=== PATIENT | male | born 1970 | race Caucasian/White ===

== ENCOUNTER 2024-06-04 13:39 | Outpatient (CLI) | payer BC, SELFPAY ==
--- NOTE | ~2024-06-04 | XR_ITS ---
XR cervical spine 4-5V 06/04/2024 14:07 Indication: Neck pain Procedure: 5 views cervical spine Comparison: No prior studies for comparison. Findings: There is disc narrowing at C5-6 and C6-7. No prevertebral soft tissue swelling. There is le voscoliosis of the cervical spine. No acute fracture or traumatic malalignment. Odontoid process is n ormal. Lateral masses normally aligned. Impression: 1: Mild cervical spondylosis with levoscoliosis. Reviewed, dictated and finalized at location B. UCHING OPERATOR Impression: 1: Mild cervical spondylosis with levoscoliosis.
--- NOTE | ~2024-06-04 | XR_ITS ---
3 VIEWS THORACIC SPINE Ordering provider: Dandre Pedersen, DC CCST History: . MID BACK PAIN, NECK PAIN . Comparison: None. FINDINGS: VERTEBRAL BODIES: Normal height and alignment. No visible fracture or subluxation. DISK SPACES: Normal. SOFT TISSUES: Normal. IMPRESSION: No acute osseous abnormality of the thoracic spine. Reviewed, dictated and finalized at location A. STICK MAN
== END 2024-06-04 13:40 | disposition home or self-care (01) ==
LOC: MICIMG 13:46
PROVIDERS: PCP Chiropractor; Visit Provider Chiropractor
DX: M47.812 Spondylosis without myelopathy or radiculopathy, cervical region (principal); M41.82 Other forms of scoliosis, cervical region
CPT/HCPCS: 72050; 72070

== ENCOUNTER 2025-03-09 08:03 | Emergency (ER) | payer BC, SELFPAY ==
--- NOTE | ~2025-03-09 | XR_ITS ---
Examination: XR knee LT min 4V Clinical History: lateral pain x2 wks. No injury. Comparison: None Technique: 4 views left knee Findings/impression: 1. No fracture, dislocation, or effusion left knee. 2. No degenerative changes. Reviewed, dictated and finalized at location R.
--- OUTSIDE RECORDS SUMMARY | 2025-03-09 08:06 | XMS_ITS | Encounter Summary ---
Author Organization [facility] Address [facility] [place] [address] Care Team Providers Care Slag Worker Name Role Phone Zach Mills MD Primary Care Provider [phone]- [phone] None, Provider Primary Care Provider Unavaila ble Encounter Details Date Type Department Care Team (Late st Contact Info) Description 04/26/2024 [employer] Message Enc [facility] [id number] [place] [phone] [employer], [facility] Provider Need to reset appt Social History Tobacco Use Types Packs/Day Years Used Date Smoking Tobacco: Never Smokeless Tobacco: Current Alcohol Use Standard Drinks/Week Comments Yes 0 (1 standard drink = 0.6 oz pur e alcohol) couple beers daily PHQ-2 Answer Date Recorded Patient Health Questionnaire-2 Score 0 02/27/2023 Sex and Gender Information Value Date Recorded Sex Assigned at Not on file Legal Sex Male 1:43 AM CDT Gender Identity Not on file Sexual Orientation Not on file documented as of this encounter Plan of Treatment Not on file documented as of this encounter Visit Diagnoses Not on filedocumented in this encounter Care Teams Slag Worker Relationship Specialty [place] [address] [address] PCP - General INTERNAL MEDICINE 04/15/24 06/02/24 None, ProviderMD PCP - General UNKNOWN PHYSICIAN SPECIALTY 06/03/24 documented as of this encounter
--- OUTSIDE RECORDS SUMMARY | 2025-03-09 08:06 | XMS_ITS | Clinical Summary ---
Author Organization [facility] Administrative Offices Address [address] [place] [address] Care Team Providers Care Physics And Astronomy Professor Name Role Phone Marko Carmona MD Primary Care Provider [phone] Allergies No known active allergies Medications rosuvastatin (CRESTOR) 20 mg tablet Take 20 mg by mouth daily at bedtime. Active levothyroxine 100 mcg tablet Take 100 mcg by mouth daily manager gas. Active fenofibrate micronized (LOFIBRA) 134 mg Capsule Take 134 mg by mouth daily. Active cephALEXin (KEFLEX) 500 mg capsule Take 1 Capsule (500 mg) by mouth 3 times daily. 15 Capsule 8 Active Additional Information Patient not taking.Reported on 09/23/2024 lisinopril (PRINIVIL) 10 mg tablet Take 10 mg by mouth daily. Active Cetirizine (ZyrTEC) 10 mg Capsule Take 10 mg at night. 30 Capsule 2 9 Active Additional Information Patient not taking.Reported on 09/23/2024 predniSONE (DELTASONE) 10 mg tablet Take 4 tablets for 7 days, then 3 tablets for 14 days, then 2 tablets for 14 days, then one tablet for 7 days 105 Tablet 0 Active Additional Information Patient not taking.Reported on 09/23/2024 clobetasol (TEMOVATE) 0.05 % Ointment APPLY TO AFFECTED AREAS ON TRUNK AND EXTREMITIES 1-2 TIMES PER DAY, DECREASE TO DAILY OR EVERY OTHER DAY YOU IMPROVE 60 Gram 0 Active Additional Information Patient not taking.Reported on 09/23/2024 triamcinolone acetonide (KENALOG) 0.1 % Ointment Apply to affected area 2 times daily. 454 Gram 1 0 Active Additional Information Patient not taking.Reported on 09/23/2024 methotrexate (RHEUMATREX) 2.5 mg Tablet Take 6 Tablets (15 mg) by mouth every 7 days. 24 Tablet 0 Active Additional Information Patient not taking.Reported on 09/23/2024 Active Problems Problem Noted Date Diagnosed Date Vasectomy evaluation 06/20/2017 Family History Medical History Relation Name Comments Rashes/Skin Problems Neg Hx Skin Cancer Neg Hx Relation Name Status Comments Father Mother Alive Social History Tobacco Use Types Packs/Day Years Used Date Smoking Tobacco: Never Smokeless Tobacco: Current Chew Tobacco Cessation:Ready to Q uit: No; Counseling Given: Yes Alcohol Use Standard Drinks/Week Comments Yes 0 (1 standard drink = 0.6 oz pur e alcohol) Sex and Gender Information Value Date Recorded Sex Assigned at Not on file 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 Gender Identity Not on file Sexual Orientation Not on file Last Filed Vital Signs Vital Sign Reading Time Taken Comments Blood Pressure 128/90 09/23/2024 1:36 PM CDT Pulse 119 09/23/2024 1:36 PM CDT Temperature 36.7 C (98 F) 09/23/2024 1:36 PM CDT Respiratory Rate 16 09/23/2024 1:36 PM CDT Oxygen Saturation 98% 09/23/2024 1:36 PM CDT Inhaled Oxygen Concentration - - Weight 90.3 kg (199 lb) 09/23/2024 1:36 PM CDT Height 182.9 cm (6') 09/23/2024 1:36 PM CDT Body Mass Index 26.99 09/23/2024 1:36 PM CDT Plan of Treatment Health Maintenance Due Date Last Done Comments Pre-Diabetes and Diabetes Screening 1971 DTAP/TDAP/TD VACCINES (1 - Tdap) 1990 HEPATITIS B VACCINES (1 of 3 - 19+ 3-dose series) 12/1989 COLORECTAL SCREENING 2016 Colorectal Cancer Screening 2016 FIT-DNA Q 3 years 2016 FIT/FOBT Q 1 year 2016 Flex Sig/CT Colonography Q 5 years 2016 ZOSTER VACCINE (1 of 2) 2021 INFLUENZA VACCINE (#1) 2024 Insurance [facility] OUT OF STATE Care Teams Physics And Astronomy Professor Relationship Specialty Start Date End Date Marko Carmona MD PCP - General Family Practice 04/12/16
--- OUTSIDE RECORDS SUMMARY | 2025-03-09 08:06 | XMS_ITS | Clinical Summary ---
Author Organization [facility] Address [address] [place] [address] Care Team Providers Care Fruit Culler Name Role Phone None, Provider MD Primary Care Provider Unavaila ble Allergies No known active allergies Medications No known medications Active Problems Problem Noted Date Diagnosed Date Hypothyroidism 02/20/2013 Overview (09/10/2021): Date Onset: 02/20/2013 Psoriasis 10/31/2012 Overview (09/10/2021): Note: left elbow Date Onset: 10/31/2012 Immunizations Immunization Administration Dates Next Due Influenza Adult (Generic) 03/03/2020 Family History Medical History Relation Comments Alzheimers Maternal Grandfather Heart Disease Paternal Grandfather Relation Status Comments Maternal Grandfather Paternal Grandfather Social History Tobacco Use Types Packs/Day Years Used Date Smoking Tobacco: Never Smokeless Tobacco: Current Tobacco Cessation:Ready to Q uit: No; Counseling [...] Sign Reading Time Taken Comments Blood Pressure 141/93 06/03/2024 9:00 AM MISCELLANEOUS MACHINE OPERATOR Pulse 82 06/03/2024 9:00 AM MISCELLANEOUS MACHINE OPERATOR Temperature 36.8 C (98.3 F) 06/03/2024 9:00 AM MISCELLANEOUS MACHINE OPERATOR Respiratory Rate 17 06/03/2024 9:00 AM MISCELLANEOUS MACHINE OPERATOR Oxygen Saturation 97% 06/03/2024 9:00 AM MISCELLANEOUS MACHINE OPERATOR Inhaled Oxygen Concentration - - Weight 86.4 kg (190 lb 7.6 oz) 06/03/2024 8:02 A M MISCELLANEOUS MACHINE OPERATOR Height 185.4 cm (6' 1) 06/03/2024 8:02 AM MISCELLANEOUS MACHINE OPERATOR Body Mass Index 25.13 06/03/2024 8:02 AM MISCELLANEOUS MACHINE OPERATOR Plan of Treatment Health Maintenance Due Date Last Done Comments Colorectal Cancer Screening Colonoscopy (10 Years) 1971 Annual Physical 1974 Hepatitis C 1989 Hepatitis B Vaccines (1 of 3 - 19+ 3-dose series) 1990 Pneumococcal Vaccine: 50+ Ye ars (1 of 1 - PCV) 2021 Zoster Vaccines (1 of 2) 2021 PHQ-2 (Physician [place]) 05/29/2024 COVID-19 Vaccine (1 - 2023-2 5 season) 2025 Influenza Adult (#1) 2025 03/03/2020 DTaP, Tdap and Td Vaccines ( 2 - Td or Tdap) 02/27/2033 02/27/2023 Meningococcal B Vaccine Aged Out No l onger eligible based on patient's age to complete this topic Meningococcal Vaccine Aged Out No paul sheri eligible based on patient's age to complete this topic RSV Immunizations Under 20 Months Aged Out No longer eligible based on patient's age to complete this topic Insurance Care Teams Fruit Culler Relationship Specialty Start Date End Date None, Provider, PCP - General UNKNOWN PHYSICIAN SPECIALTY 06/03/24
--- OUTSIDE RECORDS SUMMARY | 2025-03-09 08:08 | XMS_ITS | Encounter Summary ---
Author Organization [facility] Address [facility] [place] [address] Care Team Providers Care Mixologist Name Role Phone None, Provider Primary Care Provider Zach Martinez MD Primary Care Provider [phone] None, Provider Primary Care Provider Wenceslao wayne Encounter Details Date Type Department Care Team (Late st Contact Info) Description 04/03/2018 Abstract [facility] Conversion Md, Generic Conversion, Social History Tobacco Use Types Packs/Day Years Used Date Smoking Tobacco: Never Assessed Sex and Gender Information Value Date Recorded Sex Assigned at Not on file Legal Sex Male 1:43 AM CDT Gender Identity Not on file Sexual Orientation Not on file documented as of this encounter Plan of Treatment Not on file documented as of this encounter Visit Diagnoses Not on filedocumented in this encounter Care Teams Mixologist Relationship Specialty Start Date End Date None, ProviderMD PCP - General 09/10/21 04/14/24 [place] [address] [facility] [address] [place] [id number] PCP - General INTERNAL MEDICINE 04/15/24 06/02/24 None, ProviderMD PCP - General UNKNOWN PHYSICIAN SPECIALTY 06/03/24 documented as of this encounter
[2025-03-09 08:11] VITALS: BP 147/100; PULSE 105; RESP 18; TEMP 36.7; O2SAT 100
--- NOTE | 2025-03-09 08:26 | ED_ITS ---
HPI - Extremity Injury (Lower) General Chief Complaint: Extremity Injury, Lower Stated Complaint: Left Knee Time Seen by Provider: 03/09/25 08:20 Source: patient and RN notes reviewed Mode of arrival: ambulatory Limitations: no limitations History of Present Illness HPI Narrative: 55-year-old male patient presents today with a 1.5-2 week history of sharp left lateral knee pain. Denies injury or trauma. Denies numbness or tingling. Pain-free at rest, but increases to 6/10 with movement or weight-bearing. He has tried ice with short-term relief. Patient does lift heavy boxes at work, but denies any tweaking or sharp pains. History of meniscus repair on affected knee 10-15 years ago. Related Data Home Medications ?Medication ?Instructions ?Recorded ?Confirmed ?Last Taken ?Type No Home Medications 03/09/25 03/09/25 U nknown History Allergies Allergy/AdvReac Type Severity Reaction Status Date / Time No Known Allergies Allergy Mild Verified 03/09/25 08:12 [facility] Surgical History Surgical History (Updated 03/09/25 @ 08:30 by Cammie Kim, [facility], ) H/O lateral meniscus repair of left knee Comments At time of signature, I have reviewed and agree with nursing past medical, surgical, social and family history unless otherwise noted. Please see nursing chart for further information. There is no relevant family history pertinent to the presenting complaint Exam Narrative: GENERAL: Well-appearing, well-nourished, and in no acute distress. HEAD: Normocephalic, atraumatic. EYES: EOMI. No redness or drainage. Conjunctivae normal. ENT: Mucous membranes pink and moist. NECK: Normal AROM. CHEST: No respiratory distress. EXTREMITIES: Left knee: Patient localizes pain to the lateral knee but is nontender to this area. Nontender patella or patellar tendon. No edema, erythema, ecchymosis noted. Pain with passive flexion and extension, internal and external rotation. Distal sensation intact. Capillary refill normal. Pedal pulse normal. SKIN: Warm, dry, no rash. Capillary refill normal. NEURO: No focal deficits. Alert and oriented x3. Gait steady. PSYCH: Normal affect. No signs of depression or anxiety. Course Course Level of Care: Express Care Visit Vital Signs Vital signs: Vital Signs Temperature 98.0 F 03/09/25 08:11 Pulse Rate 105 H 03/09/25 08:11 Respiratory Rate 18 03/09/25 08:11 Blood Pressure 147/100 H 03/09/25 08:11 Pulse Oximetry 100 03/09/25 08:11 Oxygen Delivery Room Air 03/09/25 08:11 Temperature 98.0 F 03/09/25 08:11 Pulse Rate 105 H 03/09/25 08:11 Respiratory Rate 18 03/09/25 08:11 Blood Pressure 147/100 H 03/09/25 08:11 Pulse Oximetry 100 03/09/25 08:11 Oxygen Delivery Room Air 03/09/25 08:11 Reviewed MDM - Extremity Injury (Lower) MDM Narrative Medical decision making narrative: 55-year-old male patient presents today with left lateral knee pain x1.5-2 weeks that has been worsening since onset. Denies injury or trauma. He has been trying ice with short-term relief. Upon exam, patient has pain with P ROM in all directions without any other abnormalities. X-ray has been obtained. At this time, patient will be discharged and called with x-ray results when they become available. Patient agrees with plan. Jeancarlos wrap applied. Vital signs stable. Anticipatory guidance given. Differential Diagnosis Differential diagnosis: Likely other (osteoarthritis, menchaca's cyst, knee strain, meniscus injury, ligamentous injury) Imaging Data Attestation: I personally reviewed and interpreted this imaging study as follows: My impression: Negative for acute findings. Critical Care Time Critical Care Time Critical Care Time: No Discharge Plan Discharge Clinical Impression: Knee pain, left Qualifiers: Chronicity: acute Qualified Code(s): M25.562 - Pain in left knee Patient Disposition: Home Condition: Stable Instructions: Knee Pain (ED) Additional Instructions: You will be notified of your xray results when they become available. Wear the Jeancarlos wrap for comfort and stability. Continue to elevate and ice the knee. Patient Language: Malaysian Prescriptions: No Action No Home Medications Follow-up/Referrals: Saeed Raygoza MD [Physician, Orthopedics] Slava,Dandre Matos DC, CCST [Primary Care Provider] Time of Disposition: 09:17
[2025-03-09 08:42] VITALS: BP 150/95
== END 2025-03-09 09:20 | disposition home or self-care (01) ==
PROVIDERS: Emergency Provider Nurse Practitioner; PCP Chiropractor
DX: M25.562 Pain in left knee (principal)
CPT/HCPCS: 73564; 99213; G0463